=== PATIENT | female | born 1940 | race Two or more races ===

== ENCOUNTER 2018-07-09 09:00 | Emergency (ER) | payer OTHER ==
[~2018-07-09] VITALS: Ht 165.1 cm; Wt 54.4 kg
[2018-07-09 09:34] VITALS: BP 136/79
[2018-07-09] MEDS ORDERED: ACETAMINOPHEN 325 MG TAB PO ONE (11:15)
== END 2018-07-09 11:22 | disposition home or self-care (01) ==
LOC: ER 09:00
DX: S83.92XA Sprain of unspecified site of left knee, initial encounter (principal); S76.912A Strain of unspecified muscles, fascia and tendons at thigh level, left thigh, initial encounter; W19.XXXA Unspecified fall, initial encounter; Y93.89 Activity, other specified; Y92.89 Other specified places as the place of occurrence of the external cause; Y99.8 Other external cause status
CPT/HCPCS: 73562

== ENCOUNTER 2019-01-20 09:23 | Emergency (ER) | payer OTHER ==
[~2019-01-20] VITALS: Ht 165.1 cm; Wt 56.7 kg
[2019-01-20 09:57] VITALS: BP 129/72
[2019-01-20] MEDS ORDERED: diphenhdrAMINE HCL 50 MG/1 ML VL IM ONE (10:45)
[2019-01-20] MEDS ORDERED: DexAMETHasone SOD PHOS 10MG/1ML VIAL INJ IM ONE (10:45)
== END 2019-01-20 16:07 | disposition home or self-care (01) ==
LOC: ER 09:23
DX: L50.9 Urticaria, unspecified (principal)
CPT/HCPCS: 96372; 99283; J1100; J1200

== ENCOUNTER 2020-02-03 12:54 | Emergency (ER) | payer OTHER ==
[~2020-02-03] VITALS: Ht 162.6 cm; Wt 59.0 kg
[2020-02-03] MEDS ORDERED: ACETAMINOPHEN 500 MG TAB PO ONE (14:15)
[2020-02-03 15:45] VITALS: BP 139/92
== END 2020-02-03 15:56 | disposition home or self-care (01) ==
LOC: ER 12:54 → EDBD 12:54 → ER 15:55
DX: S39.012A Strain of muscle, fascia and tendon of lower back, initial encounter (principal); M43.16 Spondylolisthesis, lumbar region; V43.52XA Car driver injured in collision with other type car in traffic accident, initial encounter; Y93.89 Activity, other specified; Y92.488 Other paved roadways as the place of occurrence of the external cause; Y99.8 Other external cause status
CPT/HCPCS: 72100

== ENCOUNTER → 2020-02-03 | Outpatient (CLI) | payer OTHER ==
[~2020-02-03] VITALS: Ht 165.1 cm; Wt 45.4 kg
== END | disposition home or self-care (01) ==
LOC: SUR 09:00 → EDSTATUS 02-07 07:00
PROVIDERS: ATTEND Obstetrics & Gynecology
DX: Z20.828 Contact with and (suspected) exposure to other viral communicable diseases (principal); N81.2 Incomplete uterovaginal prolapse; R10.2 Pelvic and perineal pain

== ENCOUNTER 2020-07-03 06:57 | Inpatient (IN) | payer OTHER ==
[~2020-07-03] VITALS: Ht 165.1 cm; Wt 49.7 kg
[2020-07-03] MEDS: LIDOCAINE W/ EPINEPHRINE 1% 20ML VIAL ONE ×2 (08:18→11:10)
[2020-07-03] MEDS: BUPIVACAINE 0.25% INJ 50ML VIAL ONE ×2 (08:18→11:10)
[2020-07-03] MEDS ORDERED: METHYLENE BLUE 0.5% 5MG/ML 10ml AMP IV ONE (08:18)
[2020-07-03] MEDS ORDERED: ceFAZolin 1GM/50ML 100 ML IV ONE (08:32)
[2020-07-03] MEDS ORDERED: ROCURONIUM 10MG/ML 10ML VIAL IV ONE (08:40)
[2020-07-03] MEDS ORDERED: DexAMETHasone SOD PHOS 10MG/1ML VIAL INJ ONE (08:41)
[2020-07-03] MEDS ORDERED: PROPOFOL 10 MG/ML 20 ML IV ONE (08:41)
[2020-07-03] MEDS ORDERED: ePHEDrine SULFATE 50 MG/ML AMP ONE (08:41)
[2020-07-03] MEDS ORDERED: HYDROmorphone HCL 2 MG/ML VL ONE (08:50)
[2020-07-03] MEDS ORDERED: ACETAMINOPHEN 325 MG TAB PO PRN (09:30)
[2020-07-03] MEDS ORDERED: NITROGLYCERIN 0.4 MG SL TAB SL PRN (09:30)
[2020-07-03] MEDS ORDERED: HYDROmorphone HCL 2 MG/ML VL IV PRN ×3 (09:30→11:45)
[2020-07-03] MEDS ORDERED: MORPHINE SULF INJ 2 MG/ML SYRINGE 1ML IV PRN (09:30)
[2020-07-03] MEDS ORDERED: ONDANSETRON HCL 4 MG/2 ML VIAL IV PRN ×2 (09:30→11:45)
[2020-07-03] MEDS ORDERED: ceFAZolin 1GM VL ONE (10:11)
[2020-07-03] MEDS ORDERED: GLYCOPYRROLATE 0.2 MG/ML 1ML VIAL ONE (10:18)
[2020-07-03] MEDS ORDERED: NEOSTIGMINE 1 MG/ML INJ (10mg/10ML VIAL) ONE (10:18)
[2020-07-03] MEDS ORDERED: ONDANSETRON HCL 4 MG/2 ML VIAL ONE (11:11)
[2020-07-03] MEDS ORDERED: LABETALOL HCL 5 MG/ML 4ML SYRINGE IV PRN ×2 (11:45)
[2020-07-03] MEDS ORDERED: hydrALAZINE HCL 20 MG/ML VL IV PRN ×2 (11:45)
[2020-07-03] MEDS ORDERED: ePHEDrine SULFATE 50 MG/ML AMP IV PRN (11:45)
[2020-07-03 12:53] VITALS: BP 145/74
[2020-07-03] MEDS: ceFAZolin 1GM/50ML 50 ML IV SCH ×2 (14:59→20:47)
[2020-07-03 16:44] VITALS: BP 140/73
[2020-07-03] MEDS: HYDROcodone-ACET 5/325MG TAB PO PRN (20:48)
[2020-07-03 22:00] VITALS: BP 140/69
[2020-07-03 22:11] VITALS: BP 145/72
[2020-07-04 04:50] VITALS: BP 138/62
[2020-07-04] MEDS: ceFAZolin 1GM/50ML 50 ML IV SCH ×2 (06:00→15:08)
[2020-07-04] MEDS: HYDROcodone-ACET 5/325MG TAB PO PRN (06:12)
[2020-07-04 08:42] VITALS: BP 135/59
[2020-07-04 13:04] VITALS: BP 134/60
[2020-07-04 16:44] VITALS: BP 135/74
[2020-07-04] MEDS ORDERED: CIPR500T4 PO (16:49)
[2020-07-04 18:00] VITALS: BP 135/79
== END 2020-07-04 19:00 | disposition home or self-care (01) | DRG 743 ==
LOC: OVERFLOW 06:57 → EDSTATUS 08:30 → WEST WING 12:38
PROVIDERS: ADMIT Obstetrics & Gynecology; ATTEND Obstetrics & Gynecology
PROC: 0UT74ZZ Resection of Bilateral Fallopian Tubes, Percutaneous Endoscopic Approach (ICD-10-PCS; 2020-07-03)
PROC: 0UT24ZZ Resection of Bilateral Ovaries, Percutaneous Endoscopic Approach (ICD-10-PCS; 2020-07-03)
PROC: 0USG4ZZ Reposition Vagina, Percutaneous Endoscopic Approach (ICD-10-PCS; 2020-07-03)
PROC: 8E0W4CZ Robotic Assisted Procedure of Trunk Region, Percutaneous Endoscopic Approach (ICD-10-PCS; 2020-07-03)
PROC: 0DNN4ZZ Release Sigmoid Colon, Percutaneous Endoscopic Approach (ICD-10-PCS; 2020-07-03)
PROC: 0UT94ZL Resection of Uterus, Supracervical, Percutaneous Endoscopic Approach (ICD-10-PCS; principal; 2020-07-03 08:47)
DX: N81.4 Uterovaginal prolapse, unspecified (principal); K66.0 Peritoneal adhesions (postprocedural) (postinfection)
CPT/HCPCS: 86850; 86900; 86901; G0378; J0690; J1100; J2405; J2704; J3490

== ENCOUNTER 2020-10-26 17:53 | Inpatient (IN) | payer OTHER ==
[~2020-10-26] VITALS: Ht 167.6 cm; Wt 50.2 kg
[~2020-10-26 17:53] MED LIST: CIPR500T4 PO
[2020-10-26] MEDS ORDERED: MORPHINE SULF INJ 2 MG/ML SYRINGE 1ML IV ONE ×2 (18:15→19:15)
[2020-10-26] MEDS ORDERED: ONDANSETRON HCL 4 MG/2 ML VIAL IV ONE ×3 (18:15→21:00)
[2020-10-26 19:02] LABS: Basophils # (auto) 0 10 ^3/uL (0-0.2); Basophils % (auto) 0.3 % (0.0-2.0); Eosinophils # (auto) 0 10 ^3/uL (0-0.8); Eosinophils % (auto) 0.4 % (0.0-7.0); Hematocrit 35.3 % (36.0-46.0); Hemoglobin 11.9 g/dL (12.2-16.2); Lymphocytes % (auto) 19.6 % (10.0-50.0); Mean Corpuscular Hemoglobin 29.1 pg (28.0-32.0); Mean Corpuscular Hgb Conc. 33.7 g/dL (32.0-36.0); Mean Corpuscular Volume 86.3 fL (80.0-100.0); Monocytes # (auto) 0.5 10 ^3/uL (0-1.3); Monocytes % (auto) 9.9 % (0.0-12.0); Neutrophils # (auto) 3.6 10 ^3/uL (1.6-8.6); Neutrophils % (auto) 69.8 % (37.0-80.0); Nucleated Red Blood Cells % 0.4 %; Red Blood Cells 4.09 10^6/uL (4.0-5.20); Red Cell Distribution Width 13.8 % (11.8-14.3); White Blood Cell 5.1 10^3/uL (4.4-10.8)
[2020-10-26 19:20] LABS: Albumin 3.2 g/dL (3.4-5.0); Potassium 3.9 mmol/L (3.5-5.1)
[2020-10-26 19:22] LABS: INR 1.04 (0.9-1.15); Partial Thromboplastin Time 23.7 sec (23.0-31.2)
[2020-10-26 19:29] LABS: BUN/Creatinine Ratio 56.8; Bilirubin, Total 0.4 mg/dL (0.2-1.0); Total Protein 6.6 g/dL (6.4-8.2)
[2020-10-26] MEDS ORDERED: HYDROmorphone HCL 2 MG/ML VL IV ONE (21:00)
[2020-10-26] MEDS ORDERED: ONDANSETRON HCL 4 MG/2 ML VIAL IV PRN (22:45)
[2020-10-26] MEDS ORDERED: NITROGLYCERIN 0.4 MG SL TAB SL PRN (22:45)
[2020-10-26] MEDS ORDERED: HYDROcodone-ACET 5/325MG TAB PO PRN (22:45)
[2020-10-26] MEDS ORDERED: DOCUSATE SOD 100 MG CAP PO PRN (22:45)
[2020-10-26] MEDS ORDERED: MORPHINE SULF INJ 2 MG/ML SYRINGE 1ML IV PRN (22:45)
[2020-10-26] MEDS ORDERED: ACETAMINOPHEN 325 MG TAB PO PRN (22:45)
[2020-10-27] MEDS: D5W/SOD CHL 0.45% 1,000 ML IV SCH ×2 (00:37→12:05)
[2020-10-27] MEDS: MORPHINE SULFATE 4 MG/ML SYR/VIAL IV PRN ×3 (00:40→23:00)
[2020-10-27 00:42] VITALS: BP 178/79
[2020-10-27] MEDS ORDERED: PNEUMOCOCCAL VACC POLYS 25 MCG/0.5 ML VIAL IM ONE (01:30)
[2020-10-27 05:00] VITALS: BP 154/69
[2020-10-27 06:51] LABS: Basophils # (auto) 0 10 ^3/uL (0-0.2); Basophils % (auto) 0.4 % (0.0-2.0); Eosinophils # (auto) 0 10 ^3/uL (0-0.8); Hematocrit 34.6 % (36.0-46.0); Hemoglobin 11.6 g/dL (12.2-16.2); Lymphocytes # (auto) 0.8 10 ^3/uL (0.4-5.4); Lymphocytes % (auto) 19.9 % (10.0-50.0); Mean Corpuscular Hemoglobin 29.1 pg (28.0-32.0); Mean Corpuscular Hgb Conc. 33.5 g/dL (32.0-36.0); Mean Corpuscular Volume 86.8 fL (80.0-100.0); Monocytes # (auto) 0.4 10 ^3/uL (0-1.3); Neutrophils # (auto) 2.9 10 ^3/uL (1.6-8.6); Neutrophils % (auto) 69.7 % (37.0-80.0); Nucleated Red Blood Cells % 0.1 %; Red Blood Cells 3.98 10^6/uL (4.0-5.20); Red Cell Distribution Width 13.8 % (11.8-14.3); White Blood Cell 4.2 10^3/uL (4.4-10.8)
[2020-10-27 07:11] LABS: Albumin 2.7 g/dL (3.4-5.0); Potassium 3.9 mmol/L (3.5-5.1)
[2020-10-27 07:16] LABS: BUN/Creatinine Ratio 45.5; Bilirubin, Total 0.8 mg/dL (0.2-1.0)
[2020-10-27 09:00] VITALS: BP 159/69
[2020-10-27] MEDS ORDERED: ENOXAPARIN SOD 40 MG/0.4 ML SYRINGE SC SCH (10:00)
[2020-10-27 13:00] VITALS: BP 151/65
[2020-10-27] MEDS ORDERED: fentaNYL CITRATE 100 MCG/2 ML VL ONE (13:56)
[2020-10-27] MEDS ORDERED: HYDROmorphone HCL 2 MG/ML VL ONE (13:56)
[2020-10-27] MEDS ORDERED: MIDAZOLAM HCL 1MG/1ML-2 ML VIAL ONE (13:56)
[2020-10-27] MEDS ORDERED: ONDANSETRON HCL 4 MG/2 ML VIAL ONE (13:57)
[2020-10-27] MEDS ORDERED: ePHEDrine SULFATE 50 MG/ML AMP ONE (13:57)
[2020-10-27] MEDS ORDERED: DexAMETHasone SOD PHOS 10MG/1ML VIAL INJ ONE (13:57)
[2020-10-27] MEDS ORDERED: GLYCOPYRROLATE 0.2 MG/ML 1ML VIAL ONE (13:57)
[2020-10-27] MEDS ORDERED: LIDOCAINE 2% (LOCAL ANESTH.) PF 5ml SDV ONE (13:57)
[2020-10-27] MEDS ORDERED: PROPOFOL 10 MG/ML 20 ML IV ONE (13:57)
[2020-10-27] MEDS ORDERED: ceFAZolin 1GM/50ML 100 ML IV ONE (14:20)
[2020-10-27] MEDS: BUPIVACAINE W/ EPINEPH 0.25% INJ 50ML MDV ONE ×2 (15:28→16:18)
[2020-10-27] MEDS: ceFAZolin 1GM/50ML 50 ML IV SCH ×2 (16:30→23:00)
[2020-10-27] MEDS: LACTATED RINGER'S 1,000 ML IV SCH (16:30)
[2020-10-27] MEDS ORDERED: NALOXONE HCL 0.4 MG/ML VIAL ONE (16:50)
[2020-10-27] MEDS ORDERED: HYDROmorphone HCL 2 MG/ML VL IV PRN (17:15)
[2020-10-27] MEDS ORDERED: ONDANSETRON HCL 4 MG/2 ML VIAL IV PRN (17:15)
[2020-10-27 22:00] VITALS: BP 125/57
[2020-10-27] MEDS: SODIUM CHLOR 0.9% PF (SALINE LOCK) 10ML VIAL/SYR IV SCH (23:00)
[2020-10-28] MEDS: LACTATED RINGER'S 1,000 ML IV SCH ×2 (03:28→05:33)
[2020-10-28] MEDS: MORPHINE SULFATE 4 MG/ML SYR/VIAL IV PRN ×2 (03:29→07:26)
[2020-10-28 05:00] VITALS: BP 162/74
[2020-10-28] MEDS: ceFAZolin 1GM/50ML 50 ML IV SCH (05:30)
[2020-10-28] MEDS: SODIUM CHLOR 0.9% PF (SALINE LOCK) 10ML VIAL/SYR IV SCH ×3 (06:00→21:59)
[2020-10-28 09:00] VITALS: BP 153/80
[2020-10-28] MEDS: ENOXAPARIN SOD 40 MG/0.4 ML SYRINGE SC SCH (10:00)
[2020-10-28 13:00] VITALS: BP 161/77
[2020-10-28 17:00] VITALS: BP 166/88
[2020-10-28 22:30] VITALS: BP_SYST 148; BP_SYST 160; BP_DIAS 82
[2020-10-29 05:13] VITALS: BP 141/76
[2020-10-29] MEDS: SODIUM CHLOR 0.9% PF (SALINE LOCK) 10ML VIAL/SYR IV SCH ×2 (06:13→06:21)
[2020-10-29 09:00] VITALS: BP 167/79
[2020-10-29] MEDS: ENOXAPARIN SOD 40 MG/0.4 ML SYRINGE SC SCH (10:15)
[2020-10-29] MEDS ORDERED: CARVEDILOL 3.125 MG TAB PO ONE (11:00)
[2020-10-29 13:00] VITALS: BP 139/63
[2020-10-29 15:56] VITALS: BP 138/91
[2020-10-29] MEDS ORDERED: CARVEDILOL 3.125 MG TAB PO SCH (22:00)
== END 2020-10-29 16:55 | disposition home health service (06) | DRG 511 ==
LOC: ER 17:53 → TELE 22:37 → TELE-WESTW 23:41
PROVIDERS: ADMIT Nurse Practitioner Family; ATTEND Internal Medicine
PROC: 0PSH04Z Reposition Right Radius with Internal Fixation Device, Open Approach (ICD-10-PCS; 2020-10-27)
PROC: 01N50ZZ Release Median Nerve, Open Approach (ICD-10-PCS; 2020-10-27)
PROC: 0PSJ04Z Reposition Left Radius with Internal Fixation Device, Open Approach (ICD-10-PCS; principal; 2020-10-27 14:26)
DX: S52.571A Other intraarticular fracture of lower end of right radius, initial encounter for closed fracture (principal); S52.572A Other intraarticular fracture of lower end of left radius, initial encounter for closed fracture; E44.1 Mild protein-calorie malnutrition; Z68.1 Body mass index [BMI] 19.9 or less, adult; S62.101A Fracture of unspecified carpal bone, right wrist, initial encounter for closed fracture; Z20.822 Contact with and (suspected) exposure to COVID-19; S62.102A Fracture of unspecified carpal bone, left wrist, initial encounter for closed fracture; W01.0XXA Fall on same level from slipping, tripping and stumbling without subsequent striking against object, initial encounter; G56.03 Carpal tunnel syndrome, bilateral upper limbs; Y93.01 Activity, walking, marching and hiking; I10 Essential (primary) hypertension; Y92.000 Kitchen of unspecified non-institutional (private) residence as the place of occurrence of the external cause; Z90.710 Acquired absence of both cervix and uterus; Y99.8 Other external cause status; Z79.899 Other long term (current) drug therapy
CPT/HCPCS: 36415; 71045; 73110; 76000; 80053; 85025; 85610; 85730; 86850; 86900; 86901; 87081; 87426; 93005; 96374; 96375; 96376; 97163; G0378; J0690; J1100; J2001; J2250; J2405; J2704

== ENCOUNTER → 2021-08-09 | Day surgery (SDC) | payer OTHER ==
[~2021-08-09] VITALS: Ht 165.1 cm; Wt 47.6 kg
[~2021-08-09] MED LIST changes: -CIPR500T4 PO; +DexAMETHasone SOD PHOS 10MG/1ML VIAL INJ ONE; +HYDROmorphone HCL 2 MG/ML VL/or syr IV PRN; +IOHEXOL 300 MG/ML 100ML BOTTLE IJ ONE; +MEPERIDINE HCL (25 MG/ML) 1ML VIAL ONE; +METH10TA6 PO; +METOCLOPRAMIDE HCL 5MG/ml INJ 2ml VIAL IV PRN; +MIDAZOLAM HCL 2MG/2ML 2ml VIAL (1mg/ml) ONE; +MORPHINE SULFATE 4 MG/ML SYR/VIAL IV PRN; +ONDANSETRON HCL 4 MG/2 ML VIAL ONE; +PROPOFOL 10 MG/ML 20 ML IV ONE; +SODIUM CHLORIDE LOCK 10 ML ONE; +ceFAZolin 1GM/50ML 50 ML IV ONE; +fentaNYL CITRATE 100 MCG/2 ML VL ONE
[2021-08-09 13:30] VITALS: BP 151/70
== END | disposition home or self-care (01) ==
LOC: SUR 10:39
PROVIDERS: ATTEND Urology
DX: N36.42 Intrinsic sphincter deficiency (ISD) (principal); N39.3 Stress incontinence (female) (male); I10 Essential (primary) hypertension; J44.9 Chronic obstructive pulmonary disease, unspecified; G89.29 Other chronic pain; E05.00 Thyrotoxicosis with diffuse goiter without thyrotoxic crisis or storm; Z20.822 Contact with and (suspected) exposure to COVID-19; Z90.710 Acquired absence of both cervix and uterus; Z98.890 Other specified postprocedural states; Z79.899 Other long term (current) drug therapy
CPT/HCPCS: 51715; 74018; 76000; J0690; J1100; J2175; J2250; J2405; J2704; J3010; L8606; U0003

== ENCOUNTER 2021-09-24 16:51 | Emergency (ER) | payer OTHER ==
[~2021-09-24] VITALS: Ht 167.6 cm; Wt 45.4 kg
[~2021-09-24 16:51] MED LIST changes: -DexAMETHasone SOD PHOS 10MG/1ML VIAL INJ ONE; -HYDROmorphone HCL 2 MG/ML VL/or syr IV PRN; -IOHEXOL 300 MG/ML 100ML BOTTLE IJ ONE; -MEPERIDINE HCL (25 MG/ML) 1ML VIAL ONE; -METOCLOPRAMIDE HCL 5MG/ml INJ 2ml VIAL IV PRN; -MIDAZOLAM HCL 2MG/2ML 2ml VIAL (1mg/ml) ONE; -MORPHINE SULFATE 4 MG/ML SYR/VIAL IV PRN; -ONDANSETRON HCL 4 MG/2 ML VIAL ONE; -PROPOFOL 10 MG/ML 20 ML IV ONE; -SODIUM CHLORIDE LOCK 10 ML ONE; -ceFAZolin 1GM/50ML 50 ML IV ONE; -fentaNYL CITRATE 100 MCG/2 ML VL ONE
[2021-09-24 21:35] VITALS: BP 150/75
[2021-09-24] MEDS ORDERED: HYDROcodone-ACET 5/325MG TAB ONE (21:41)
[2021-09-24] MEDS ORDERED: HYDROcodone-ACET 5/325MG TAB PO ONE (21:45)
== END 2021-09-24 21:44 | disposition home or self-care (01) ==
LOC: ER 16:51
DX: S66.811A Strain of other specified muscles, fascia and tendons at wrist and hand level, right hand, initial encounter (principal); Z90.710 Acquired absence of both cervix and uterus; W01.0XXA Fall on same level from slipping, tripping and stumbling without subsequent striking against object, initial encounter; Y93.89 Activity, other specified; Y92.89 Other specified places as the place of occurrence of the external cause; Y99.8 Other external cause status
CPT/HCPCS: 73030; 73070; 73560

== ENCOUNTER 2024-02-15 11:19 | Emergency (ER) | payer OTHER ==
[~2024-02-15] VITALS: Ht 162.6 cm; Wt 42.6 kg
[~2024-02-15 11:19] MED LIST changes: +METH-552 PO; -METH10TA6 PO
--- NOTE | 2024-02-15 11:53 | ED.PDOC ---
History of Present Illness HPI Comments 84Y F with PMHx hysterectomy presents to ED for chief complaint vaginal bleeding x3days. Pt states she goes through 2 pads per day. Additional symptom includes vaginal pain. No known allergies. 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 SHRIMP BOAT CAPTAIN History Family History Family History: No family hx of Cancer, No family hx of DM, No family hx of Heart tay Social History Smoker: Non-Smoker Alcohol: Denies ETOH Use Drugs: Denies Drug Use Lives In: Home Constitutional: denies: chills, diaphoresis, fatigue, fever, malaise, sweats, weakness, others EENTM: denies: blurred vision, double vision, ear bleeding, ear discharge, ear drainage, ear pain, ear ringing, eye pain, eye redness, hearing loss, mouth pain, mouth swelling, nasal discharge, nose bleeding, nose congestion, nose pain, photophobia, tearing, throat pain, throat swelling, voice changes, others Respiratory: denies: cough, hemoptysis, orthopnea, SOB at rest, shortness of breath, SOB with excertion, stridor, wheezing, others Cardiovascular: denies: chest pain, dizzy spells, diaphoresis, Dyspnea on exertion, edema, irregular heart beat, left arm pain, lightheadedness, palpitations, PND, syncope, others Gastrointestinal: denies: abdomen distended, abdominal pain, blood streaked bowels, constipated, diarrhea, dysphagia, difficulty swallowing, hematemesis, melena, nausea, poor appetite, poor fluid intake, rectal bleeding, rectal pain, vomiting, others Genitourinary: reports: abnormal vagina bleeding, pain; denies: burning, dyspareunia, dysuria, flank pain, frequency, hematuria, incontinence, , vagina discharge, urgency, others Neurological: denies: dizziness, fainting, headache, left sided numbness, left sided weakness, numbness, paresthesia, pre-existing deficit, right sided numbness, right sided weakness, seizure, speech problems, tingling, tremors, weakness, others Musculoskeletal: denies: back pain, gout, joint pain, joint swelling, muscle pain, muscle stiffness, neck pain, others Integumetry: denies: bruises, change in color, change in hair/nails, dryness, laceration, lesions, lumps, rash, wounds, others Allergic/Immunocompromised: denies: Difficulty Healing, Frequent Infections, Hives, Itching, others Hematologic/Lymphatic: denies: anemia, blood clots, easy bleeding, easy bruising, swollen glands, others Endocrine: denies: excessive hunger, excessive sweating, excessive thirst, excessive urination, flushing, intolerance to cold, intolerance to heat, unexplained weight gain, unexplained weight loss, others Psychiatric: denies: anxiety, bipolar disorder, depression, hopeless, panic disorder, schizophrenia, sleepless, suicidal, others All Other Systems: Reviewed and Negative Physical Exam General Appearance: No Apparent Distress, Normal HEENT: Normal ENT Inspection, Pharynx Normal, TMs Normal Neck: Full Range of Motion, Non-Tender, Normal, Normal Inspection Respiratory: Chest Non-Tender, Lungs Clear, No Accessory Muscle Use, No Respiratory Distress, Normal Breath Sounds Cardiovascular: No Edema, No JVD, No Murmur, No Gallop, Normal Peripheral Pulses, Regular Rate/Rhythm Breast Exam: Deferred Gastrointestinal: No Organomegaly, Non Tender, No Pulsatile Mass, Normal Bowel Sounds, Soft Genitalia: Deferred Pelvic: Deferred Rectal: Deferred Extremities: No calf tenderness, Normal capillary refill, Normal inspection, Normal range of motion, Non-tender, No pedal edema Musculoskeletal : Apperance: Normal Neurologic: Alert, airconditioning 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 Was a procedure done?: No Differential Dx Considerations may include: vaginal trauma, uterine lesions, malignancy. coagulopathy, hemorrhagic cystitis X-Ray, Labs, Meds, VS Vital Signs Date Time Temp Pulse Resp B/P (MAP) Pulse Ox O2 Delivery O2 Flow Rate FiO2 02/15/24 15:28 89 18 98 Room Air* 0 21 02/15/24 15:28 89 18 124/68 (86) 98 02/15/24 11:33 98.1 79 18 157/95 (115) 97 Lab Test 02/15/24 15:24 02/15/24 12:20 Range/Units Urine Color Light-yellow Yellow Urine Clarity Turbid H Clear Urine pH 5.5 5.0-9.0 Urine Specific [place] 1.022 1.001-1.035 Urine Protein Trace H Negative Urine Ketones Negative Negative Urine Blood 2+ H Negative /uL Urine Nitrite Negative Negative Urine Bilirubin Negative Negative Urine Urobilinogen Normal Negative mg/dL Urine Leukocyte Esterase 3+ Negative /uL Urine RBC 45 0 - 4 /hpf Urine WBC 346 0 - 5 /hpf Urine Squamous Epithelial Cells Few <5 /hpf Urine Bacteria None seen None Seen /hpf Urine Glucose Normal Normal mg/dL White Blood Count 10.1 4.4-10.8 10^3/uL Red Blood Count 4.54 4.0-5.20 10^6/uL Hemoglobin 14.1 12.2-16.2 g/dL Hematocrit 42.7 36.0-46.0 % Mean Corpuscular Volume 94.2 80.0-100.0 fL Mean Corpuscular Hemoglobin 31.1 28.0-32.0 pg Mean Corpuscular Hemoglobin Concent 33.0 32.0-36.0 g/dL Red Cell Distribution Width 12.7 11.8-14.3 % Platelet Count 205 140-450 10^3/uL Mean Platelet Volume 8.6 6.9-10.8 fL Neutrophils (%) (Auto) 84.5 H 37.0-80.0 % Lymphocytes (%) (Auto) 9.2 L 10.0-50.0 % Monocytes (%) (Auto) 6.0 0.0-12.0 % Eosinophils (%) (Auto) 0.2 0.0-7.0 % Basophils (%) (Auto) 0.1 0.0-2.0 % Neutrophils # (Auto) 8.5 1.6-8.6 10 ^3/uL Lymphocytes # (Auto) 0.9 0.4-5.4 10 ^3/uL Monocytes # (Auto) 0.6 0-1.3 10 ^3/uL Eosinophils # (Auto) 0 0-0.8 10 ^3/uL Basophils # (Auto) 0 0-0.2 10 ^3/uL Nucleated Red Blood Cells 0.1 % Sodium Level 141 136-145 mmol/L Potassium Level 3.8 3.5-5.1 mmol/L Chloride Level 108 H 98-107 mmol/L Carbon Dioxide Level 28 20-31 mmol/L Anion Gap 5 5-15 Blood Urea Nitrogen 19 9-23 mg/dL Creatinine 0.63 0.550-1.02 mg/dL Glomerular Filtration Rate Calc 89 >90 mL/min BUN/Creatinine Ratio 30.2 H 10.0-20.0 Serum Glucose 95 74-106 mg/dL Calcium Level 10.3 8.7-10.4 mg/dL [place] [id number] Ph: [phone] DIAGNOSTIC IMAGING Diagnostic Imaging Report : [id number] Signed PATIENT: CRISTELA KRUGERIAACCT: [id number] UNIT: [id number] : 1940 LOC: ER ROOM / BED: / AGE / SEX: 84 / F ADM STATUS: REG ER SERVICE 1137 ORDERING PHYSICIAN: LUNA SHAVER MD PROCEDURE(s): PELUS - PELVIC REASON: post menapaus bleed ORDER NUMBER(s): [id number], ACCESSION NUMBER(s): [id number] Procedure: US PELVIC 02/15/2024 01:38 PM Indication: post menapaus bleed. Comparison: None Technique: Real-time grayscale and color images were obtained. FINDINGS: UTERUS: Surgically absent. OVARIES: Not identified. CUL-DE-SAC: No significant fluid noted. OTHER: Debris is seen in the dependent portion of bladder lumen. IMPRESSION: 1. Incidentally noted is debris in bladder lumen. Infection or hemorrhage can not be ruled out. Correlate with urinalysis. 2. The uterus is surgically absent. The adnexa are not identified. No suspicious pelvic mass. ATED BY: LEONA DUBOIS MD DICTATED DATE/TIME: 02/15/24 1411 SIGNED BY: LEONA DUBOIS MD SIGNED DATE/TIME: 02/15/24 1411 CC: Time of 1ST Reevaluation: 12:13 Reevaluation 1ST: Unchanged Time of 2ND Reevaluation: 16:01 Reevaluation 2ND: Unchanged Patient Education/Counseling: Diagnosis, Treatment, Prognosis, Need For Follow Up Family Education/Counseling: Diagnosis, Treatment, Prognosis, Need For Follow Up, No Family Present Additional Information it appears that pt has hemorrhagic cystitis, as there is no evidence of uterine abnormalities . she will be started on antibiotic and is stable to follow up with her doctor Departure 1 Departure Time of Disposition: 16:02 Impression: Primary Impression: Hemorrhagic cystitis Disposition: 01 HOME / SELF CARE / HOMELESS Condition: Good Discharged With: Self, Relative Critical Care Note Critical Care Time?: No Stability Stability form required: No Heart Score Heart Score: Heart Score Response (Comments) Value History N/A 0 EKG N/A 0 Age N/A 0 Risk Factors N/A 0 Troponin N/A 0 Total 0 I personally scribed for LUNA SHAVER MD ([email or web address]) on 02/15/24 at 11:53. Electronically submitted by Katey Lyle ([email or web address]). I personally scribed for LUNA SHAVER MD ([email or web address]) on 02/15/24 at 14:16. Electronically submitted by Katey Lyle ([email or web address]). LUNA SHAVER MD Feb 15, 2024 11:53
[2024-02-15 12:33] LABS: Basophils # (auto) 0 10 ^3/uL (0-0.2); Basophils % (auto) 0.1 % (0.0-2.0); Eosinophils # (auto) 0 10 ^3/uL (0-0.8); Eosinophils % (auto) 0.2 % (0.0-7.0); Hematocrit 42.7 % (36.0-46.0); Hemoglobin 14.1 g/dL (12.2-16.2); Lymphocytes # (auto) 0.9 10 ^3/uL (0.4-5.4); Lymphocytes % (auto) 9.2 % (10.0-50.0); Mean Corpuscular Hemoglobin 31.1 pg (28.0-32.0); Mean Corpuscular Volume 94.2 fL (80.0-100.0); Monocytes # (auto) 0.6 10 ^3/uL (0-1.3); Neutrophils # (auto) 8.5 10 ^3/uL (1.6-8.6); Neutrophils % (auto) 84.5 % (37.0-80.0); Nucleated Red Blood Cells % 0.1 %; Platelet Count (auto) 205 10^3/uL (140-450); Red Blood Cells 4.54 10^6/uL (4.0-5.20); Red Cell Distribution Width 12.7 % (11.8-14.3); White Blood Cell 10.1 10^3/uL (4.4-10.8)
[2024-02-15 12:53] LABS: Chloride 108 mmol/L (98-107); Potassium 3.8 mmol/L (3.5-5.1); Sodium 141 mmol/L (136-145)
[2024-02-15 12:54] LABS: Calcium 10.3 mg/dL (8.7-10.4)
[2024-02-15 12:59] LABS: BUN/Creatinine Ratio 30.2 (10.0-20.0); Blood Urea Nitrogen 19 mg/dL (9-23); Glucose 95 mg/dL (74-106)
[2024-02-15 13:22] LABS: Anion Gap 5 (5-15); Carbon Dioxide 28 mmol/L (20-31)
--- NOTE | 2024-02-15 14:14 | DVH ---
Procedure: US PELVIC 02/15/2024 01:38 PM Indication: post menapaus bleed. Comparison: None Technique: Real-time grayscale and color images were obtained. FINDINGS: UTERUS: Surgically absent. OVARIES: Not identified. CUL-DE-SAC: No significant fluid noted. OTHER: Debris is seen in the dependent portion of bladder lumen. IMPRESSION: 1. Incidentally noted is debris in bladder lumen. Infection or hemorrhage can not be ruled out. Nicki elate with urinalysis. 2. The uterus is surgically absent. The adnexa are not identified. No suspicious pelvic mass.
[2024-02-15 15:28] VITALS: BP 124/68; PULSE 89; RESP 18; O2SAT 98
[2024-02-15 15:47] LABS: Urine Bacteria None Seen /hpf (None Seen)
[2024-02-15 15:52] LABS: Urine Blood 2+ /uL (Negative); Urine Clarity Turbid (Clear); Urine Color Light-Yellow (Yellow); Urine Protein, UAD TRACE (Negative); Urine Specific Gravity 1.022 (1.001-1.035); Urine Urobilinogen Normal (Negative); Urine WBC 346 /hpf (0 - 5); Urine pH 5.5 (5.0-9.0)
[2024-02-15] MEDS ORDERED: CEPH500T PO (16:05)
[2024-02-15] MEDS: cefTRIAXone SOD 1,000 MG VL IM ONE (16:27)
[2024-02-15] MEDS: LIDOCAINE 1% HCL (LOCAL ANESTH.) INJ 20ML MDV ONE (16:27)
== END 2024-02-15 16:35 | disposition home or self-care (01) ==
LOC: ER 11:19
DX: N30.90 Cystitis, unspecified without hematuria (principal); Z90.710 Acquired absence of both cervix and uterus
CPT/HCPCS: 36415; 76856; 80048; 81001; 85025; 96372; 99285; J0696; J2003

== ENCOUNTER 2024-09-25 07:45 | Emergency (ER) | payer OTHER ==
[~2024-09-25] VITALS: Ht 167.6 cm; Wt 47.8 kg
[~2024-09-25 07:45] MED LIST changes: +CEPH500T PO
--- NOTE | 2024-09-25 08:19 | ED.PDOC ---
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 Pt states she has been having vaginal bleeding for the past 2 days. Pt states she has been having associated increased urinary output when she has to normally void but otherwise denies any associated clots or associated symptoms. Pt otherwise states she has had this on/off intermittently for some time now. Pt otherwise states she has been to PCP recently and was prescribed estrogen cream but otherwise denies any other use of medications. Pt denies any other symptoms at this time. Chief Complaint: Vaginal Bleed Time Seen by MD: 08:15 Reviewed Notes: Glucose And Syrup Weigher Notes, Medications Allergies: Coded Allergies: NO KNOWN ALLERGIES (Unverified , 06/29/20) Home Meds Active Scripts Cephalexin Monohydrate (Cephalexin) 500 Mg Tab, 1 TAB PO QID for 7 Days, #28 TAB Prov:LUNA SHAVER MD 02/15/24 Reported Medications Methimazole (Methimazole) 10 Mg Tab, 20 MG PO DAILY, TAB 08/08/21 Information Source: Patient, Spouse Mode of Arrival: Ambulatory Brought in by: spouse Past Medical History PAST MEDICAL HISTORY: Denies Surgical History: Hysterectomy PAPER SAMPLE CLERK History: No Pertinent PAPER SAMPLE CLERK History Family History Family History: No family hx of Cancer, No family hx of DM, No family hx of Heart tay Social History Smoker: Non-Smoker Alcohol: Denies ETOH Use Drugs: Denies Drug Use Lives In: Home Constitutional: denies: chills, diaphoresis, fatigue, fever, malaise, sweats, weakness, others EENTM: denies: blurred vision, double vision, ear bleeding, ear discharge, ear drainage, ear pain, ear ringing, eye pain, eye redness, hearing loss, mouth pain, mouth swelling, nasal discharge, nose bleeding, nose congestion, nose pain, photophobia, tearing, throat pain, throat swelling, voice changes, others Respiratory: denies: cough, hemoptysis, orthopnea, SOB at rest, shortness of breath, SOB with excertion, stridor, wheezing, others Cardiovascular: denies: chest pain, dizzy spells, diaphoresis, Dyspnea on exertion, edema, irregular heart beat, left arm pain, lightheadedness, palpitations, PND, syncope, others Gastrointestinal: denies: abdomen distended, abdominal pain, blood streaked bowels, constipated, diarrhea, dysphagia, difficulty swallowing, hematemesis, melena, nausea, poor appetite, poor fluid intake, rectal bleeding, rectal pain, vomiting, others Genitourinary: reports: abnormal vagina bleeding; denies: burning, dyspareunia, dysuria, flank pain, frequency, hematuria, incontinence, pain, , vagina discharge, urgency, others Neurological: denies: dizziness, fainting, headache, left sided numbness, left sided weakness, numbness, paresthesia, pre-existing deficit, right sided numbness, right sided weakness, seizure, speech problems, tingling, tremors, weakness, others Musculoskeletal: denies: back pain, gout, joint pain, joint swelling, muscle pain, muscle stiffness, neck pain, others Integumetry: denies: bruises, change in color, change in hair/nails, dryness, laceration, lesions, lumps, rash, wounds, others Allergic/Immunocompromised: denies: Difficulty Healing, Frequent Infections, Hives, Itching, others Hematologic/Lymphatic: denies: anemia, blood clots, easy bleeding, easy bruising, swollen glands, others Endocrine: denies: excessive hunger, excessive sweating, excessive thirst, excessive urination, flushing, intolerance to cold, intolerance to heat, unexplained weight gain, unexplained weight loss, others Psychiatric: denies: anxiety, bipolar disorder, depression, hopeless, panic disorder, schizophrenia, sleepless, suicidal, others All Other Systems: Reviewed and Negative Physical Exam General Appearance: Mild Distress HEENT: Pharynx Normal Neck: Normal Inspection Respiratory: No Respiratory Distress Cardiovascular: No Edema Breast Exam: Deferred Gastrointestinal: Non Tender Genitalia: Deferred Pelvic: Deferred Rectal: Deferred Extremities: No pedal edema Neurologic: No Motor Deficits Cerebellar Function: NOT DONE Reflexes: NOT DONE Skin: Normal Color Lymphatic: NOT DONE Was a procedure done? Was a procedure done?: No Differential Diagnosis (PAPER SAMPLE CLERK) Vaginal Bleeding: Blood Loss Anemia, Cervicitis, UTI, Vaginitis X-Ray, Labs, Meds, VS Vital Signs Date Time Temp Pulse Resp B/P (MAP) Pulse Ox O2 Delivery O2 Flow Rate FiO2 09/25/24 09:42 97.5 61 16 134/58 (83) 96 97.5 09/25/24 08:08 98.2 68 16 126/78 (94) 98 98.2 Lab Test 09/25/24 08:49 09/25/24 08:38 Range/Units Urine Color Yellow Yellow Urine Clarity Hazy H Clear Urine pH 5.5 5.0-9.0 Urine Specific [place] 1.034 1.001-1.035 Urine Protein Trace H Negative Urine Ketones Negative Negative Urine Blood 1+ H Negative /uL Urine Nitrite Negative Negative Urine Bilirubin Negative Negative Urine Urobilinogen 2 H Negative mg/dL Urine Leukocyte Esterase Negative Negative /uL Urine RBC 6 0 - 4 /hpf Urine Microscopic WBC 4 0-5 /HPF Urine Squamous Epithelial Cells Many <5 /hpf Urine Bacteria Few H None Seen /hpf Urine Mucus Few None Seen Urine Glucose Normal Normal mg/dL White Blood Count 4.3 L 4.4-10.8 10^3/uL Red Blood Count 4.53 4.0-5.20 10^6/uL Hemoglobin 14.2 12.2-16.2 g/dL Hematocrit 42.4 36.0-46.0 % Mean Corpuscular Volume 93.6 80.0-100.0 fL Mean Corpuscular Hemoglobin 31.4 28.0-32.0 pg Mean Corpuscular Hemoglobin Concent 33.6 32.0-36.0 g/dL Red Cell Distribution Width 14.0 11.8-14.3 % Platelet Count 208 140-450 10^3/uL Mean Platelet Volume 8.4 6.9-10.8 fL Neutrophils (%) (Auto) 68.8 37.0-80.0 % Lymphocytes (%) (Auto) 20.8 10.0-50.0 % Monocytes (%) (Auto) 8.7 0.0-12.0 % Eosinophils (%) (Auto) 1.2 0.0-7.0 % Basophils (%) (Auto) 0.5 0.0-2.0 % Neutrophils # (Auto) 2.9 1.6-8.6 10 ^3/uL Lymphocytes # (Auto) 0.9 0.4-5.4 10 ^3/uL Monocytes # (Auto) 0.4 0-1.3 10 ^3/uL Eosinophils # (Auto) 0.1 0-0.8 10 ^3/uL Basophils # (Auto) 0 0-0.2 10 ^3/uL Nucleated Red Blood Cells 0.2 % Sodium Level 143 136-145 mmol/L Potassium Level 4.5 3.5-5.1 mmol/L Chloride Level 105 98-107 mmol/L Carbon Dioxide Level 28 20-31 mmol/L Anion Gap 10 5-15 Blood Urea Nitrogen 20 9-23 mg/dL Creatinine 0.81 0.550-1.02 mg/dL Glomerular Filtration Rate Calc 72 >90 mL/min BUN/Creatinine Ratio 24.7 H 10.0-20.0 Serum Glucose 93 74-106 mg/dL Calcium Level 9.8 8.7-10.4 mg/dL Time of 1ST Reevaluation: 10:29 Reevaluation 1ST: Improved Patient Education/Counseling: Diagnosis, Treatment Family Education/Counseling: Diagnosis, Treatment Departure 1 Departure Time of Disposition: 10:27 (Patient with abnormal uterine bleeding but otherwise benign labs and benign vitals. We will discharge patient home with outpatient follow up) Impression: Primary Impression: Abnormal vaginal bleeding Disposition: 01 HOME / SELF CARE / HOMELESS Condition: Stable Referrals: DAVID SALCEDO DO Additional Instructions: Your workup today was benign. Your labs appear well. You were referred to gynecology for abnormal vaginal bleeding. It is important to call for an appointment this week. Discharged With: Self Critical Care Note Critical Care Time?: No Stability Stability form required: No Heart Score Heart Score: Heart Score Response (Comments) Value History N/A 0 EKG N/A 0 Age N/A 0 Risk Factors N/A 0 Troponin N/A 0 Total 0 I personally scribed for VILMA ACHARYA MD ([email or web address]) on 09/25/24 at 08:19. Electronically submitted by Dennis Murry ([email or web address]). VILMA ACHARYA MD Sep 25, 2024 08:19
[2024-09-25 09:01] LABS: Urine Bacteria FEW /hpf (None Seen); Urine Blood 1+ /uL (Negative); Urine Color Yellow (Yellow); Urine Mucus FEW (None Seen); Urine Protein, UAD TRACE (Negative); Urine Specific Gravity 1.034 (1.001-1.035); Urine Squamous Epithelial Cell MANY /hpf (<5); Urine Urobilinogen 2 mg/dL (Negative); Urine WBC 4 /HPF (0-5); Urine pH 5.5 (5.0-9.0)
[2024-09-25 09:02] LABS: Urine Clarity Hazy (Clear)
[2024-09-25 09:03] LABS: Basophils # (auto) 0 10 ^3/uL (0-0.2); Basophils % (auto) 0.5 % (0.0-2.0); Eosinophils # (auto) 0.1 10 ^3/uL (0-0.8); Eosinophils % (auto) 1.2 % (0.0-7.0); Hematocrit 42.4 % (36.0-46.0); Hemoglobin 14.2 g/dL (12.2-16.2); Lymphocytes # (auto) 0.9 10 ^3/uL (0.4-5.4); Lymphocytes % (auto) 20.8 % (10.0-50.0); Mean Corpuscular Hemoglobin 31.4 pg (28.0-32.0); Mean Corpuscular Hgb Conc. 33.6 g/dL (32.0-36.0); Mean Corpuscular Volume 93.6 fL (80.0-100.0); Monocytes # (auto) 0.4 10 ^3/uL (0-1.3); Monocytes % (auto) 8.7 % (0.0-12.0); Neutrophils # (auto) 2.9 10 ^3/uL (1.6-8.6); Neutrophils % (auto) 68.8 % (37.0-80.0); Nucleated Red Blood Cells % 0.2 %; Platelet Count (auto) 208 10^3/uL (140-450); Red Blood Cells 4.53 10^6/uL (4.0-5.20); White Blood Cell 4.3 10^3/uL (4.4-10.8)
[2024-09-25 09:06] LABS: Chloride 105 mmol/L (98-107); Potassium 4.5 mmol/L (3.5-5.1); Sodium 143 mmol/L (136-145)
[2024-09-25 09:07] LABS: Anion Gap 10 (5-15); Calcium 9.8 mg/dL (8.7-10.4); Carbon Dioxide 28 mmol/L (20-31)
[2024-09-25 09:12] LABS: BUN/Creatinine Ratio 24.7 (10.0-20.0); Blood Urea Nitrogen 20 mg/dL (9-23); Glucose 93 mg/dL (74-106)
[2024-09-25 09:42] VITALS: BP 134/58; PULSE 61; RESP 16; TEMP 97.5; O2SAT 96
== END 2024-09-25 10:50 | disposition home or self-care (01) ==
LOC: ER 07:45
DX: N93.9 Abnormal uterine and vaginal bleeding, unspecified (principal); Z90.710 Acquired absence of both cervix and uterus
CPT/HCPCS: 36415; 80048; 81001; 85025